=== PATIENT | male | born 1960 | race Caucasian/White ===

== ENCOUNTER → 2020-08-06 10:01 | Outpatient (BNVA) | payer OTHER, SELFPAY | PROVIDERS: PCP Internal Medicine; Visit Provider Orthopaedic Surgery ==

== ENCOUNTER 2024-04-11 11:27 | Day surgery (SDC) | payer OTHER, SELFPAY ==
[2024-04-11] VITALS (9 sets, daily range): BP systolic 124–159; BP diastolic 70–95; PULSE 70–79; RESP 16–18; TEMP 36.6–36.8; O2SAT 97–99; BMI 31.9
--- NOTE | ~2024-04-11 | CT_ITS ---
EXAMINATION: CT ABDOMEN AND PELVIS WITHOUT CONTRAST CLINICAL INFORMATION: COMPARISON: None available. TECHNIQUE: Multidetector volumetric imaging was performed from the superior aspect of the liver through the pubic symphysis. Sagittal and coronal reformatted images were obtained on the technologist's workstation. This CT examination was performed using dose optimization techniques as appropriate, variously including the following: *Automated exposure control *Adjustment of mA and/or kV according to patient size (this includes techniques or standardized protocols for targeted exams where dose is matched to indication/reason for exam; i.e. extremities or head) *Use of iterative reconstruction technique DLP: 636 mGy-cm FINDINGS: LUNG BASES: The visualized lung bases are unremarkable. LIVER, GALLBLADDER, AND BILIARY TREE: Liver is enlarged and demonstrates moderate hepatic steatosis. No focal hepatic mass. No intrahepatic biliary dilatation. The gallbladder is unremarkable with no evidence of radiopaque gallstones, gallbladder wall thickening, or obvious pericholecystic inflammatory changes. PANCREAS: Unremarkable. SPLEEN: No focal splenic mass. Some scarring versus dystrophic calcification seen along the left lateral splenic margin. ADRENAL GLANDS: Unremarkable. KIDNEYS AND URETERS: There is a 5 x 2 stone in the most distal left ureter approaching the left UVJ4 with resultant mild to moderate left hydronephrosis. There is a nonobstructive stone within the left renal pelvis at 5 mm. There is a second 2.5 mm stone in the lower left kidney. No suspicious mass. No perinephric collection. Right kidney unremarkable. BLADDER: Unremarkable. GASTROINTESTINAL TRACT: Small hiatal hernia. No bowel obstruction or right or left lower quadrant inflammatory change. A few scattered diverticula are seen throughout the colon without diverticulitis. Appendix normal. ABDOMINAL WALL: No significant hernia is appreciated. LYMPH NODES: Normal. VASCULAR: There is atherosclerotic but not aneurysmal. PELVIC VISCERA: Unremarkable. OSSEOUS STRUCTURES: Mild degenerative change particularly at L2-3. No fracture. CT/CT abdomen pelvis wo IV con IMPRESSION: Distal left ureteral stone with mild to moderate left hydronephrosis. Fleischner guidelines were followed. Electronically signed by: Sam Long MD 04/11/2024 01:59 PM EDT
--- NOTE | 2024-04-11 12:30 | ED_ITS ---
HPI - Abdominal Pain General Chief Complaint: General Medical Stated Complaint: PT C/O L FLANK PAIN,?'S KIDNEY STONE PER EMS Time Seen by Provider: 04/11/24 11:33 Source: patient and old records reviewed Mode of arrival: EMS Limitations: no limitations History of Present Illness ED Provider: BEVERLY HPI narrative: 64 yo male with PMH of DM and renal colic here with c/o L flank pain and nausea starting after coffee this AM around 9am - no fevers, able to urinate, he has had two prior kidney stone episodes in the past that he passed on his own. At this time still has pain. Has no urologist. MD elicited complaint: flank pain Pertinent past history: kidney stones Onset (ago): hour(s) (few) Pain Consistency: constant Location: L flank Severity: moderate Quality: stabbing Radiation: LLQ Migration to: no migration Exacerbating factors: nothing Relieving factors: nothing Context: history of similar episodes Associated symptoms: nausea Related Data Home Medications ?Medication ?Instructions ?Recorded ?Confirmed ezetimibe 10 mg tablet 10 mg PO DAILY 08/06/20 metformin 1,000 mg tablet 1,000 mg PO BID 08/06/20 Allergies Allergy/AdvReac Type Severity Reaction Status Date / Time Gaufgqn-XTX-ZtK Reductase Allergy Mild Unknown Verified 04/11/24 12:09 Inhibitor [Xyfwkyt-Pyw-Zfj Reductase Inhibitor] Review of Systems Review of Systems Constitutional : No Weight loss, No Fever, No Chills ENT/Mouth : No sore throat, No Rhinorrhea Eyes: No Swelling, No Redness Cardiovascular : No Chest Pain, No SOB, NoEdema Respiratory : No Cough, No Sputum, No Wheezing Gastrointestinal : Positive Nausea, no Vomiting, no Diarrhea, positive abdominal Pain, No Hematochezia, No Melena Genitourinary : No Dysuria, No Urinary Frequency, No Hematuria, No Urgency Musculoskeletal : No joint pain, No Myalgias, No Joint Swelling Skin : No Skin Lesions, No rash Neuro : No Weakness, No Numbness, No Dizziness, No Headache All other systems reviewed and are negative. [facility] Past Medical History Attestation statement: The following information was validated with the patient. Source: old records reviewed Medical History Type 2 diabetes mellitus Nephrolithiasis Hyperglycemia Hypercholesteremia Surgical History History of arthroscopy of knee Family History Family History (Updated 08/06/20 @ 10:11 by DERRELL Parsons) Father No problems noted. Mother No problems noted. Social History Social History Alcohol intake: current Alcohol intake frequency: holidays/special occasions only Alcohol type: beer Smoked in Last 30 Days: No Use of substances other than those prescribed or required for medical reasons: No Advance Directives: No Advance Directives Information Provided: No Do you have a plan to hurt others: No Plan Current occupational status: retired Current occupation: right handed Physical Exam ED Vital Signs: Vital Signs - 24 hr 04/11/24 11:54 04/11/24 11:58 04/11/24 14:17 Temperature 98.0 F 98.0 F Pulse Rate 70 70 Respiratory Rate 16 16 16 Blood Pressure 155/71 H 155/71 H Pulse Oximetry 98 98 Oxygen Delivery Method Room Air Room Air BMI result Body Mass Index 31.9 Appearance: Alert. Oriented X3. No acute distress. Eyes: Pupils equal, round and reactive to light. ENT: Pharynx normal. Neck: Normal inspection. Neck supple. CVS: Normal heart rate and rhythm. Pulses normal. Respiratory: No respiratory distress. Breath sounds normal. Abdomen: Soft and non-tender. Skin: Skin warm and dry. Normal skin color. Normal skin turgor. Extremities: No lower extremity edema. No calf ttp Neuro: Oriented X 3. No motor deficit. No sensory deficit. Medical Decision Making Medical Decision Making [facility] Narrative: 64 yo male with PMH of DM and renal colic here with c/o L flank pain and nausea at this time will need labs, UA, CT scan for renal colic and IV morphine for pain feels similar to prior renal colic Differential Diagnosis Differential Diagnoses: The differential diagnosis associated with the presentation includes renal colic, constipation Admission/Observation Consideration of admission/observation: Escalation of care including admission/observation considered to go to OR with Dr. Crespo for removal NPO since coffee this AM Consult Healthcare Provider Management of the patient was discussed with: [employer] Supervisor (Dr. Crespo to remove stone) Lab Data [facility] Lab Attestation statement: I reviewed the patient's lab results. 04/11/24 12:28 04/11/24 12:58 Labs: Lab Results 04/11/24 04/11/24 Range/Units 12:28 12:58 WBC 11.0 H (4.8-10.8) X10*3/uL RBC 4.65 (4.60-5.80) X10*6/uL Hgb 14.9 (14.0-18.0) g/dl Hct 42.9 (42.0-52.0) % MCV 92.3 (80.0-98.0) fL MCH 32.0 (27.0-33.0) pg MCHC 34.7 (31.0-36.0) g/dl RDW 12.8 (11.0-16.0) % Plt Count 285 (160-400) X10*3/uL MPV 10.5 (9.4-12.4) fL Immature Gran % (Auto) 0.4 (0.0-0.4) % Neut % (Auto) 78.1 H (45-73) % Lymph % (Auto) 14.6 L (20-40) % [place] % (Auto) 5.4 (2-11) % Eos % (Auto) 0.7 (0-4) % Baso % (Auto) 0.8 (0-2) % Lymph # (Auto) 1.6 (1.2-4.9) X10*3/uL [place] # (Auto) 0.6 (0.1-1.2) X10*3/uL Eos # (Auto) 0.1 (0.0-0.4) X10*3/uL Baso # (Auto) 0.1 (0.0-0.2) X10*3/uL Abs Immat Gran (auto) 0.04 H (0.00-0.03) X10*3/uL Absolute Neuts (auto) 8.6 H (2.0-8.3) x10*3/uL Absolute Nucleated RBC 0.000 (0.0-0.012) X10*3/uL Nucleated RBC % (auto) 0.0 (0.0-0.2) /100WBC Smear Tech's Comments VERIFIED Sodium 141 (135-145) mmol/L Potassium 4.0 (3.3-5.1) mmol/L Chloride 106 (96-108) mmol/L Carbon Dioxide 25 (22-29) mmol/L Anion Gap 14 (12-20) BUN 16 (9-16) mg/dL Creatinine 1.07 (0.5-1.4) mg/dL Estim Creat Clear Calc 83.0 Estimated GFR > 60 Random Glucose 177 H (60-115) mg/dL Calcium 9.2 (8.4-10.2) mg/dL Magnesium 1.8 (1.6-2.6) mg/dL Total Bilirubin 0.4 (0.0-1.0) mg/dL Direct Bilirubin 0.1 (0.0-0.5) mg/dL AST 18 (5-37) U/L ALT 21 (0-40) U/L Alkaline Phosphatase 62 (39-117) U/L Total Protein 7.1 (6.5-8.0) g/dL Albumin 4.2 (3.5-5.0) g/dL Lipase 19 (8-78) U/L Independent Interpretation I performed an independent interpretation of an: EKG and CT Scan (+ renal colic) Interpretation: Rate: 71 Rhythm: NSR [place]: left Normal P waves. Normal SHANICE. Normal QRS complex. ST T wave : inverted t waves III, no JOSE qTC: 412 prior studies: no acute ischemia The study has been interpreted contemporaneously by me. . Radiology Impression Discussion of test interpretation with radiology: I have reviewed the radiologist's reading. Independent Historian Clinical information obtained from an independent historian. History obtained from or confirmed by: Spouse External Record Review External record reviewed: Inpatient record Medications Administered Discontinued Medications Generic Name Dose Route Start Last Admin Trade Name Anna PRN Reason Stop Dose Admin Hydromorphone HCl 1 mg 04/11/24 14:13 04/11/24 14:17 Hydromorphone Hcl 1 Mg/Ml Syringe IVPUSH 04/11/24 14:14 1 mg ONCE ONE Administration Protocol Ketorolac Tromethamine 15 mg 04/11/24 12:39 04/11/24 12:45 Ketorolac Tromethamine 15 Mg/Ml Vial IVPUSH 04/11/24 12:40 15 mg ONCE ONE Administration Morphine Sulfate 4 mg 04/11/24 12:05 04/11/24 12:46 Morphine Sulfate 4 Mg/Ml Cartridge IVPUSH 04/11/24 12:06 4 mg ONCE ONE Administration Protocol Ondansetron HCl 4 mg 04/11/24 12:05 04/11/24 12:45 Ondansetron Hcl 4 Mg/2 Ml Vial IVPUSH 04/11/24 12:06 4 mg ONCE ONE Administration Tamsulosin HCl 0.4 mg 04/11/24 14:05 04/11/24 14:11 Tamsulosin Hcl 0.4 Mg Capsule PO 04/11/24 14:06 0.4 mg ONCE ONE Administration Critical Care Time Critical Care Time Critical Care Time: Yes Total Critical Care Time: 35 Attestation: repeat IV morphine/dilaudid with improvement in pain, consult I attest to this time spent taking care of the patient Discharge Plan Discharge Clinical Impression: Ureterolithiasis Patient Disposition: Admitted as Observation
--- NOTE | 2024-04-11 12:35 | PC.NURSE ---
Pt is a difficulty stick for IV access, 2 attempts made by this RN without success. Colleague solicited, awaiting IV placement then will medicate per MAR.
[2024-04-11 12:42] LABS: Basophils Absolute Auto 0.1 X10*3/uL (0.0-0.2); Basophils Percent Auto 0.8 % (0-2); Hemoglobin 14.9 g/dl (14.0-18.0); Imm Gran Abs Auto 0.04 X10*3/uL (0.00-0.03); Imm Gran Pct Auto 0.4 % (0.0-0.4); MANUAL DIFF FLAG SCAN; PLT CLUMP 1; SCAN SMEAR FLAG 1
[2024-04-11 12:44] LABS: Eosinophils Absolute Auto 0.1 X10*3/uL (0.0-0.4); Eosinophils Percent Auto 0.7 % (0-4); Hematocrit 42.9 % (42.0-52.0); Lymphocytes Absolute Auto 1.6 X10*3/uL (1.2-4.9); Lymphocytes Percent Auto 14.6 % (20-40); Mean Corpuscular HGB Conc 34.7 g/dl (31.0-36.0); Mean Corpuscular Volume 92.3 fL (80.0-98.0); Monocytes Absolute Auto 0.6 X10*3/uL (0.1-1.2); Monocytes Percent Auto 5.4 % (2-11); Neutrophils Absolute Auto 8.6 x10*3/uL (2.0-8.3); Neutrophils Percent Auto 78.1 % (45-73); Red Blood Count 4.65 X10*6/uL (4.60-5.80); Red Cell Distribution Width 12.8 % (11.0-16.0)
[2024-04-11] MEDS: ondansetron HCL 4 MG/2 ML VIAL IVPUSH ×2 (12:45→19:35)
[2024-04-11] MEDS: Ketorolac Tromethamine 15 MG/ML VIAL IVPUSH (12:45)
[2024-04-11] MEDS: Morphine Sulfate 4 MG/ML CARTRIDGE IVPUSH (12:46)
[2024-04-11 13:17] LABS: Mean Platelet Volume 10.5 fL (9.4-12.4); Platelet Count 285 X10*3/uL (160-400); SLIDE REVIEW VERIFIED
[2024-04-11 13:20] LABS: Alanine Aminotransferase 21 U/L (0-40); Albumin Level 4.2 g/dL (3.5-5.0); Alkaline Phosphatase 62 U/L (39-117); Anion Gap 14 (12-20); Aspartate Amino Transferase 18 U/L (5-37); Bilirubin Direct 0.1 mg/dL (0.0-0.5); Bilirubin Total 0.4 mg/dL (0.0-1.0); Blood Urea Nitrogen 16 mg/dL (9-16); Calcium 9.2 mg/dL (8.4-10.2); Carbon Dioxide 25 mmol/L (22-29); Chloride 106 mmol/L (96-108); Estimated Glomerular Filt Rate > 60; Glucose Random 177 mg/dL (60-115); Lipase 19 U/L (8-78); Magnesium 1.8 mg/dL (1.6-2.6); Sodium 141 mmol/L (135-145); Total Protein 7.1 g/dL (6.5-8.0)
[2024-04-11] MEDS: Tamsulosin HCL 0.4 MG CAPSULE PO (14:11)
[2024-04-11] MEDS: HYDROmorphone HCl 1 MG/ML SYRINGE IVPUSH (14:17)
--- NOTE | 2024-04-11 14:18 | P.CNUR_ITS ---
History of Present Illness Consult details Consult date: 04/11/24 Narrative: CC: Left lower quadrant pain 64-year-old male 24 hour history of distal left quadrant pain Pass background of diabetes Pain associated with nausea, no vomiting Denies fever, chills, hematuria Has had 2 prior kidney stone episodes that have passed spontaneously WBC 11.0, creatinine 1.1, calcium 9.2 Imaging - There is a 5 x 2 stone in the most distal left ureter approaching the left UVJ4 with resultant mild to moderate left ]hydronephrosis. Discussion regarding intervention. Require cystoscopy, left retrograde with ureteroscopy and laser lithotripsy Review of Systems 2 Constitutional: Constitutional: Reports as per HPI and Reports no additional constitutional complaints Cardiovascular: Cardiovascular: Reports as per HPI and Reports no additional cardiovascular complaints Respiratory: Respiratory: Reports as per HPI and Reports no additional respiratory complaints Gastrointestinal: Gastrointestinal: Reports as per HPI and Reports no additional gastrointestinal complaints Genitourinary: Genitourinary: Reports as per HPI Musculoskeletal: Musculoskeletal: Reports no additional musculoskeletal complaints and Reports as per HPI Neurologic: Reports system reviewed and no additional complaints, except as documented and Reports as per HPI [facility] Past Medical History Medical History Type 2 diabetes mellitus Nephrolithiasis Hyperglycemia Hypercholesteremia Family History Family History (Updated 08/06/20 @ 10:11 by DERRELL Parsons) Father No problems noted. Mother No problems noted. Surgical History Surgical History History of arthroscopy of knee Social History Social History Alcohol intake: current Alcohol intake frequency: holidays/special occasions only Alcohol type: beer Smoked in Last 30 Days: No Use of substances other than those prescribed or required for medical reasons: No Advance Directives: No Advance Directives Information Provided: No Do you have a plan to hurt others: No Plan Current occupational status: retired Current occupation: right handed Meds Allergies Allergy/AdvReac Type Severity Reaction Status Date / Time Wvfyyfb-MRE-PiN Reductase Allergy Mild Unknown Verified 04/11/24 12:09 Inhibitor [Fyklszy-Wjn-Buu Reductase Inhibitor] Home Medications ?Medication ?Instructions ?Recorded ?Confirmed ?Last Taken ?Type ezetimibe 10 mg tablet 10 mg PO DAILY 08/06/20 Unknown History metformin 1,000 mg tablet 1,000 mg PO BID 08/06/20 Unknown History Physical Exam 2 Vital Signs: Vital Signs: Last Vital Signs Temp 98.0 F 04/11/24 11:58 Pulse 70 04/11/24 11:58 Resp 16 04/11/24 11:58 BP 155/71 H 04/11/24 11:58 Pulse Ox 98 04/11/24 11:58 O2 Del Method Room Air 04/11/24 11:58 BMI result Body Mass Index 31.9 Const: General: cooperative, healthy appearing, comfortable and no acute distress Orientation/consciousness: patient oriented x3 HEENT: Face and sinus: Yes normal facial exam Mouth: moist mucous membranes Neck: Neck: Yes normal visual inspection, Yes full ROM and Yes trachea midline Chest: Chest palpation & inspection: normal inspection of the chest Resp: Effort & Inspection: normal respiratory effort, able to speak in complete sentences and no respiratory distress GI: Inspection: Yes normal to inspection Back/Spine/Pelvis: Cervical Spine: normal cervical lordosis Thoracic/Lumbar Spine: thoracic and lumbar spine normal to inspection Skin: General skin exam: no rashes or lesions noted Neuro: General: patient oriented x3, tone normal and moves all extremities Extrem: General: Yes normal to inspection and Yes capillary refill normal Results Labs 04/11/24 12:28 04/11/24 12:58 Labs: Abnormal lab results 04/11/24 04/11/24 Range/Units 12:28 12:58 WBC 11.0 H (4.8-10.8) X10*3/uL Neut % (Auto) 78.1 H (45-73) % Lymph % (Auto) 14.6 L (20-40) % Abs Immat Gran (auto) 0.04 H (0.00-0.03) X10*3/uL Absolute Neuts (auto) 8.6 H (2.0-8.3) x10*3/uL Random Glucose 177 H (60-115) mg/dL Short CBC 04/11/24 Range/Units 12:28 WBC 11.0 H (4.8-10.8) X10*3/uL Hgb 14.9 (14.0-18.0) g/dl Hct 42.9 (42.0-52.0) % Plt Count 285 (160-400) X10*3/uL BMP 04/11/24 12:58 Sodium 141 Potassium 4.0 Chloride 106 Carbon Dioxide 25 BUN 16 Creatinine 1.07 Calcium 9.2 Liver Function 04/11/24 Range/Units 12:58 Total Bilirubin 0.4 (0.0-1.0) mg/dL Direct Bilirubin 0.1 (0.0-0.5) mg/dL AST 18 (5-37) U/L ALT 21 (0-40) U/L Alkaline Phosphatase 62 (39-117) U/L Albumin 4.2 (3.5-5.0) g/dL All other labs normal. Assessment and Plan (1) Ureterolithiasis: Status: Acute Plan Ureteroscopy We discussed the nature of the decision and reasonable alternatives for performing ureteroscopy. Options such as medical therapy were discussed. Interventions include chemical dissolution, ESWL, ureteroscopy with laser lithotripsy and stent placement, PCNL. The relative uncertainties and benefits related to each alternate procedure were adequately discussed. General surgical risks including, but not limited to - pain, bleeding, infection, myocardial infarction, pulmonary embolus, deep vein thrombosis and cerebrovascular accident which may result in further hospitalization were discussed. Full disclosure of the procedure as well as all major risks, benefits and complications were discussed including but not limited to damage to the urethra, bladder and kidney infection, damage to the ureter, stent migration or malposition, scarring to the renal pelvis, remnant stone fragments, subsequent stone passage with need for secondary procedures. The overall secondary procedure rate is approximately 10-15%. The overall clearance rate is approximately 90-95%. Success of the procedure in the short-term does not necessarily guarantee that long-term success will be maintained. Suitable follow up will need to be maintained. The patient showed understanding of discussion and wishes to proceed with - cystoscopy, retrograde, ureteroscopy, possible lithotripsy/stone basketing and stent on the left side Procedures Date of Service Date of Service: 04/11/24
--- NOTE | 2024-04-11 15:07 | ECG_ITS ---
Test Reason : ABD PAIN Blood Pressure : / mmHG Vent. Rate : 071 BPM Atrial Rate : 071 BPM P-R Int : 150 ms QRS Dur : 084 ms QT Int : 380 ms P-R-T Axes : 030 -47 -08 degrees QTc Int : 412 ms Normal sinus rhythm with sinus arrhythmia Left axis deviation Cannot rule out Anterior infarct , age undetermined Abnormal ECG No previous ECGs available Referred By: Opal Loya Electronically Signed By:CARLITO UP MD
[2024-04-11 15:30] LABS: Appearance Urine Cloudy; Color Urine Dark Yellow; Glucose Urine UA >=1000 mg/dL (Negative); Leukocyte Esterase Urine Negative (Negative); Nitrite Urine Negative (Negative); Specific Gravity - Urine >= 1.030 (1.005-1.025); UMIC TRIGGER UACC YES; Urine Blood Negative (Negative); Urine Ketones 15 mg/dL (Negative); Urine Protein 30 (1+) mg/dL (Neg-Trace)
[2024-04-11 15:45] LABS: Bacteria Urine None Seen (None Seen); Calcium Oxalate Crystals Urine Present; Hyaline Casts Urine 0-2 /LPF (0-2); RBC Urine 0-2 /HPF (0-2); Squamous Epithelial Cell Urine 0-2 /HPF (0-2); WBC Urine 0-5 /HPF (0-5)
--- NOTE | 2024-04-11 16:35 | PC.NURSE ---
RN to RN report given to pre-op/OR.
--- NOTE | 2024-04-11 16:58 | HO.ANESPROP2 ---
HPI - Anesthesia Eval Consult details Narrative: Ureter stone obstruction PMFSH Active Problems Active Problems: All Active Problems Ureterolithiasis (Acute) Past Medical History Medical History Type 2 diabetes mellitus Nephrolithiasis Hyperglycemia Hypercholesteremia Family History Family History (Updated 08/06/20 @ 10:11 by Alexa Hannah Cynthia) Father No problems noted. Mother No problems noted. Family history of problems with anesthesia: No Surgical History Surgical History History of arthroscopy of knee History of Problems with Anesthesia: No Social History Social History Alcohol intake: current Alcohol intake frequency: holidays/special occasions only Alcohol type: beer Smoked in Last 30 Days: No Use of substances other than those prescribed or required for medical reasons: No Advance Directives: No Advance Directives Information Provided: No Do you have a plan to hurt others: No Plan Current occupational status: retired Current occupation: right handed Meds Allergies Allergy/AdvReac Type Severity Reaction Status Date / Time Grizmsy-ZNS-VeS Reductase Allergy Mild Unknown Verified 04/11/24 12:09 Inhibitor [Uafnejp-Mxp-Zno Reductase Inhibitor] Home Medications ?Medication ?Instructions ?Recorded ?Confirmed ?Last Taken ?Type ezetimibe 10 mg tablet 10 mg PO DAILY 08/06/20 Unknown History metformin 1,000 mg tablet 1,000 mg PO BID 08/06/20 Unknown History Exam Height,Weight and Vital Signs: Height 5 ft 10 in Weight 100.9 kg Last Vital Signs Temp 98.0 F 04/11/24 11:58 Pulse 70 04/11/24 11:58 Resp 16 04/11/24 14:17 BP 155/71 H 04/11/24 11:58 Pulse Ox 98 04/11/24 11:58 O2 Del Method Room Air 04/11/24 11:58 Pertinent Lab Results Pertinent Lab Results: Laboratory Tests 04/11/24 04/11/24 04/11/24 12:28 12:58 15:20 WBC 11.0 H RBC 4.65 Hgb 14.9 Hct 42.9 MCV 92.3 MCH 32.0 MCHC 34.7 RDW 12.8 Plt Count 285 MPV 10.5 Immature Gran % (Auto) 0.4 Neut % (Auto) 78.1 H Lymph % (Auto) 14.6 L [place] % (Auto) 5.4 Eos % (Auto) 0.7 Baso % (Auto) 0.8 Lymph # (Auto) 1.6 [place] # (Auto) 0.6 Eos # (Auto) 0.1 Baso # (Auto) 0.1 Abs Immat Gran (auto) 0.04 H Absolute Neuts (auto) 8.6 H Absolute Nucleated RBC 0.000 Nucleated RBC % (auto) 0.0 Smear Tech's Comments VERIFIED Sodium 141 Potassium 4.0 Chloride 106 Carbon Dioxide 25 Anion Gap 14 BUN 16 Creatinine 1.07 Estim Creat Clear Calc 83.0 Estimated GFR > 60 Random Glucose 177 H Calcium 9.2 Magnesium 1.8 Total Bilirubin 0.4 Direct Bilirubin 0.1 AST 18 ALT 21 Alkaline Phosphatase 62 Total Protein 7.1 Albumin 4.2 Lipase 19 Urine Color Dark Yellow Urine Appearance Cloudy Urine pH 5.0 Ur Specific [place] >= 1.030 H Urine Protein 30 (1+) H Urine Glucose (UA) >=1000 H Urine Ketones 15 Urine Blood Negative Urine Nitrite Negative Ur Leukocyte Esterase Negative Urine RBC 0-2 Urine WBC 0-5 Ur Squamous Epith Cells 0-2 Calcium Oxalate Crystal Present Urine Bacteria None Seen Hyaline Casts 0-2 Airway Mallampati Class: II TM Dist: >3cm Neck ROM: Full Loose/Missing/Broken Teeth: No Heart: RRR Lungs: CTA Assessment and Plan Assessment Anesthesia Assessment: Anesthesia Plan Discussed and Chart Reviewed Final Anesthetic Review Family History of Problems with Anesthesia: No History of Problems with Anesthesia: No NPO: Yes ASA Class: III and Emergency Final Preanesthetic Review: No Changes in Pt Med Stat, Meds/Allgs Chart Reviewed, Consent Obtained/Reviewed and Anes Risks/Benef Reviewed Patient Risk: Intermediate Procedure Risk: Low Anesthetic Plan Anesthetic Plan: GA Disposition: Standard PACU
[2024-04-11] MEDS: levoFLOXacin/D5W 500 MG/100 ML PIGGYBACK 100 MG IV (17:42)
--- NOTE | 2024-04-11 18:00 | MHC.SHP ---
Pre-Procedural Eval Section A - 24 Hr Update-Section A only Date of Service: 04/11/24 The patient is an INPATIENT: No Changes since office visit: No Cold of Flu in the past 2 weeks, No New Medical Problems, No Changes in Medication and No Patient answered all questions The patient has been examined within 24 hours of the surgical procedure. The History & Physical has been completed within 30 days and I have reviewed it.: Yes Section B - Complete if H&P > 30 days Chief Complaint: PT C/O L FLANK PAIN,?'S KIDNEY STONE PER EMS Details of Present Illness: Left distal ureteric stone Allergies: Allergies Allergy/AdvReac Type Severity Reaction Status Date / Time Jffzrbo-GJB-CeQ Reductase Allergy Mild Unknown Verified 04/11/24 12:09 Inhibitor [Ebgbdqu-Sac-Liw Reductase Inhibitor] Review of Systems Sugical H&P ROS: Negative: Constitution, Cardiovascular, Respiratory, Neurological, Psychiatric, Hem-Onc, Allergic/Immunologic, Gastrointestinal, Genitourinary, Musculoskeletal, Integumentary, Endocrine and Eyes/Ears/Nose/Throat Exam Surgical H&P Exam: Normal: HEENT, Normal: Heart, Normal: Lungs, Normal: Extremities, Normal: Abdomen, Normal: Skin and Normal: Neurological Plan Diagnosis/Plan: Unchanged (Cystoscopy, left retrograde, left ureteroscopy with laser lithotripsy and stent placement) I have reviewed the history and physical and performed a pertinent physical examination on my patient. No changes have occurred unless specified. Time Spent With Patient Time: Total time managing care of this patient today ____ minutes.
--- NOTE | 2024-04-11 18:50 | W.PM.OPN ---
Operative Note Operative Note Date of Service: 04/11/24 Narrative: PreOperative Diagnosis: Distal left ureteric stone Post Operative Diagnosis: Distal left ureteric stone Procedure: - cystoscopy, left retrograde - left dilatation of ureteric orifice under fluoroscopy - left ureteroscopy, laser lithotripsy, stone basketing - left stent placement Surgeon: Dr Nilo Crespo Anesthesia: General Indications for procedure: Distal left ureteric stone. Emergency room presentation for persistent pain. Elevated white count. Background diabetes. Procedure: After informed consent was verified the patient was brought to the operating room and placed in a supine position. Anesthesia was administered per protocol. The patient was placed in a modified dorsal lithotomy position and prepped and draped in a sterile fashion. Safety pause time-out and side of surgery were confirmed. Images were available for review. Antibiotic administration confirmed. A 22 [place] cystoscope was inserted per urethra. The urethra was without aabnormality. The bladder was normal in its entirety. Both ureteric orifices were seen in normal position. The left ureteric orifice was cannulated and a retrograde examination was performed. Filling defects seen in distal portion of ureter with proximal hydroureter . A Sensor guidewire was placed up to the level of the renal pelvis under fluoroscopy. The rigid cystoscope was removed. A Johny dilator was placed over the Sensor guidewire and used to dilate the ureteric orifice under fluoroscopy. The dilator was removed. The semi rigid ureteral scope was placed alongside the Sensor guidewire. Stone was encountered in distal portion of ureter.. Using a 365 micro holmium laser fiber the stone was broken into small pieces using a combination of hammer and dusting techiques. Stone fragments were removed from the ureter using a ZeroTip 2.4 [place] basket. Once the fragments were removed a decision was made to place a ureteric stent. Based on the height of the patient a 6 Fr x 26 stent was used. The string was removed from the stent prior to placement The rigid cystoscope was backloaded over the wire and advanced into the bladder. A 6 [place] by 26 cm double-J stent was placed into the renal pelvis and bladder under a combination of fluoroscopy and direct visualization. The bladder was emptied. The patient tolerated the procedure well and was extubated in the operating room. They were transferred in stable condition to the recovery area. Pathology: stones Drains: Double J stent as described above
[2024-04-11] MEDS: Phenazopyridine HCL 100 MG TABLET PO (19:20)
[2024-04-11] MEDS: Acetaminophen 1,000 MG/100 ML PIGGYBACK 400 MG IV (19:24)
[2024-04-11] MEDS: Ketorolac Tromethamine 30 MG/ML VIAL IVPUSH (19:28)
[2024-04-18 21:59] LABS: Stone Source LEFT URETERAL STONE
== END 2024-04-11 20:15 | disposition home or self-care (01) ==
LOC: HO.ED 14:50 → HO.SSS 14:57
PROVIDERS: Emergency Provider Emergency Medicine; PCP Internal Medicine; Visit Provider Urology
PROC: (CPT 52356; principal; 2024-04-11 18:00)
DX: N13.2 Hydronephrosis with renal and ureteral calculous obstruction (principal); E11.9 Type 2 diabetes mellitus without complications; E78.00 Pure hypercholesterolemia, unspecified; Z79.84 Long term (current) use of oral hypoglycemic drugs; Z79.899 Other long term (current) drug therapy
CPT/HCPCS: 52356; 36415; 74176; 80048; 80076; 81001; 82365; 83690; 83735; 85025; 88300; 93005; 96374; 96375; 99285; C1758; C1769; C2617; J0131; J1171; J1885; J1956; J2003; J2270; J2405; J2704; J3010; Q9967

== ENCOUNTER → 2024-04-11 12:16 | Outpatient (BNV) | payer OTHER, SELFPAY | PROVIDERS: Emergency Provider Emergency Medicine; PCP Internal Medicine; Visit Provider Urology | DX: N20.1 Calculus of ureter (principal) | CPT/HCPCS: 52356; 74420; 99284 ==

== ENCOUNTER → 2024-04-11 15:07 | Outpatient (BNV) | payer OTHER, SELFPAY | PROVIDERS: Emergency Provider Emergency Medicine; PCP Internal Medicine; Visit Provider Internal Medicine Cardiovascular Disease | DX: R94.31 Abnormal electrocardiogram [ECG] [EKG] (principal) | CPT/HCPCS: 93010 ==

== ENCOUNTER 2024-05-02 14:49 | Outpatient (AMB) | payer OTHER, SELFPAY ==
--- NOTE | 2024-05-02 14:56 | A.OFFVIS_ITS ---
Intake Visit Reasons: cysto stent removal Intake Note: Patient is present for Cystoscopy/Stent Removal Urology Med:None Antibiotic Allergy: None Blood Thinner: None Uro G HD Disposable Cystoscope LOT:[id number] EXP:08/04/2026 Allergies Kjmoljh-NPL-SuZ Reductase Inhibitor [Vuwjkup-Sfn-Oyv Reductase Inhibitor] Allergy (Mild, Verified 04/11/24 12:09) Unknown HPI Comments Details: Sebastián is a pleasant male. He is a patient of Dr. Tapia. He seen for the following urologic conditions - nephrolithiasis Here for cysto stent removal Discussed Stone composition Start potassium citrate low-dose Encourage lemon water Nephrolithiasis 24 hour history of distal left quadrant pain Background of diabetes Laboratories WBC 11.0, creatinine 1.1, calcium 9.2 Intervention - 04/26 left ureteroscopy with laser lithotripsy Imaging - There is a 5 x 2 stone in the most distal left ureter approaching the left UVJ with resultant mild to moderate left hydronephrosis. Constituents - Calcium Oxalate Monohydrate (Whewellite) 95%Carbonate Apatite (Dahllite) 5% PFSH Medical History Type 2 diabetes mellitus Nephrolithiasis Hyperglycemia Hypercholesteremia Surgical History History of arthroscopy of knee Family History (Updated 08/06/20 @ 10:11 by DERRELL Parsons) Father No problems noted. Mother No problems noted. Social History Alcohol intake: current Alcohol intake frequency: holidays/special occasions only Alcohol type: beer Comment: OR Current occupational status: retired Current occupation: right handed Review of Systems Const Denies chills and Denies fever(s) Card Reports no additional complaints and Denies syncope Resp Denies cough GI Denies abdominal pain and Denies heartburn Reports as per HPI and Denies change in libido Neuro Denies syncope Psych Denies change in libido Endo Denies change in libido Physical Exam Const General: cooperative, healthy appearing, comfortable and no acute distress Orientation/consciousness: patient oriented x3 HEENT Face and sinus: Yes normal facial exam Mouth: moist mucous membranes Neck Neck: Yes normal visual inspection, Yes full ROM and Yes trachea midline Chest Chest palpation & inspection: normal inspection of the chest Resp Effort & Inspection: normal respiratory effort, able to speak in complete sentences and no respiratory distress GI Inspection: Yes normal to inspection Back/Spine/Pelvis Cervical Spine: normal cervical lordosis Thoracic/Lumbar Spine: thoracic and lumbar spine normal to inspection Skin General skin exam: no rashes or lesions noted Neuro General: patient oriented x3, gait normal, tone normal and moves all extremities Extrem General: Yes normal to inspection and Yes capillary refill normal Office Procedures Cystoscopy Consent Discussed risk and benefit or proposed procedure with the patient. Information consent for procedure given to the patient. Discussed technical aspects, risks, benefits and alternatives in full. Addressed all of the patient's questions and concerns regarding the procedure. The patient demonstrated knowledge and understanding. They wish to proceed with this procedure. Preparation The patient was prepped in the usual manner. A etcher apprentice photoengraving was present and in the room. Genitalia was prepped with betadine solution in a sterile manner. Lidocaine Jelly 2% was placed into the urethra and 16Fr flexible Olympus cystoscope was inserted into the meatus after adequate lubrication. Procedure A well lubricated 16 Mexican cystoscope was placed No abnormality noted of urethra during placement Indwelling stent seen within bladder emerging from left ureteric orifices The stent was grasped with a 3 prong grasper and removed without difficulty The patient tolerated the procedure well [id number] with stent removal DISPOSABLE SCOPE URO-G FLEXIBLE SCOPE Procedure code (CPT) selection complete Office Meds lidocaine HCl 2 % mucosal jelly in applicator Performing Provider: Nilo Crespo MD Performing Location: [facility] Administered by: Jose Arita LPN on 05/02/24 15:17 Dose Route Admin Location Dispensed Lot Number Expiration Date [facility] Placement Specialist 10 mL intra-urethral 10 mL nitrofurantoin monohydrate/macrocrystals 100 mg capsule Performing Provider: Nilo Crespo MD Performing Location: [facility] Administered by: Jose Arita LPN on 05/02/24 15:17 Dose Route Admin Location Dispensed Lot Number Expiration Date [facility] Placement Specialist 100 mg PO 1 cap naproxen 500 mg tablet Performing Provider: Nilo Crespo MD Performing Location: [facility] Administered by: Jose Arita LPN on 05/02/24 15:17 Dose Route Admin Location Dispensed Lot Number Expiration Date [facility] Placement Specialist 500 mg PO 1 tab Results AMB Urinalysis, Automated UA Leukoctes 0 Rashawn/uL Last Edit by Estela Medina [facility] on 05/02/24 15:11 UA Nitrite Negative Last Edit by Estela Medina, A on 05/02/24 15:11 UA Urobilinogen 0.2 mg/dL Last Edit by Estela Medina A on 05/02/24 15:1 1 UA Protein 100 mg/dL Last Edit by Estela Medina A on 05/02/24 15:11 UA pH 5.5 Last Edit by Estela Medina, A on 05/02/24 15:11 UA Blood 200 [place]/uL Last Edit by Estela Medina [facility] on 05/02/24 15:11 UA Specific [place] 1.020 Last Edit by Estela Medina A on 05/02/24 15: 11 UA Ketone Negative Last Edit by Estela Medina [facility] on 05/02/24 15:11 UA Bilirubin 0 mg/dL Last Edit by Estela Medina [facility] on 05/02/24 15:11 UA Glucose 1000 mg/dL Last Edit by Estela Medina [facility] on 05/02/24 15:11 Results Reviewed Results Reviewed: Laboratory Last Values Urine pH (Auto) 5.5 05/02/24 15:01 Specific [place] (Auto) 1.020 05/02/24 15:01 Urine Protein (Auto) 100 mg/dL 05/02/24 15:01 Glucose (UA)(Auto) 1000 mg/dL 05/02/24 15:01 Urine Ketones (Auto) Negative 05/02/24 15:01 Urine Blood (Auto) 200 [place]/uL 05/02/24 15:01 Urine Nitrite (Auto) Negative 05/02/24 15:01 Urine Bilirubin (Auto) 0 mg/dL 05/02/24 15:01 Urine Urobilinogen (Auto) 0.2 mg/dL 05/02/24 15:01 Leukocyte Esterase (Auto) 0 Rashawn/uL 05/02/24 15:01 Assessment & Plan Assessment & Plan (1) Ureterolithiasis: Code(s): N20.1 - Calculus of ureter Category: Medical Plan Six-month follow-up renal ultrasound Orders: Orders AMB Cystoscopy Today N20.1 - Calculus of ureter AMB Urinalysis Automated Today Z13.9 - Encounter for screening, unspecified US renal BI 6 Months N20.1 - Calculus of ureter Medications: New potassium citrate ER 10 mEq PO BID 90 days 180 tabs 1RF N20.0 - Calculus of ki dney, N20.1 - Calculus of ureter Patient Instructions: Imaging studies, laboratory and physical exam results were discussed and reviewed in detail. No major barriers to patient understanding were identified. An opportunity to ask questions regarding the treatment plan was provided. All questions were answered. The patient expressed understanding and agreement with the above treatment plan. The patient is aware they should contact our office by phone for worsening of their current condition or the appearance of new urologic symptoms. Compliance is encouraged with any medications and followup testing that is ordered. It is a privilege to participate in the urologic care of your patient. If you have any questions or concerns regarding treatment for the above conditions, or other urologic issues, please do not hesitate to contact me. The office telephone contact is [phone]. This note is constructed using voice recognition software. While every effort has been made to ensure accuracy animal keeper head errors may have been included. Yours sincerely, Dr Nilo Crespo MD, [facility] - Urology Providers of Expert, Compassionate Care for the Genitourinary System Coding Level of Care Code Est Pt Level 4 (62666) Diagnoses Ureterolithiasis N20.1 CPT Codes Cystoscopy - CPT: 70414-[id number] with stent removal ([id number])
== END 2024-05-02 15:37 | disposition home or self-care (01) ==
LOC: HO.HUSH 14:50
PROVIDERS: PCP Internal Medicine; Visit Provider Urology
DX: N20.1 Calculus of ureter (principal); Z13.9 Encounter for screening, unspecified
CPT/HCPCS: 52310; 99214

== ENCOUNTER → 2024-05-02 14:49 | Outpatient (BNVA) | payer OTHER, SELFPAY | PROVIDERS: PCP Internal Medicine; Visit Provider Urology | DX: Z48.816 Encounter for surgical aftercare following surgery on the genitourinary system (principal) | CPT/HCPCS: 52310; 81003 ==

== ENCOUNTER 2024-10-26 09:41 | Outpatient (REF) | payer OTHER, SELFPAY ==
--- NOTE | ~2024-10-26 | US_ITS ---
CLINICAL HISTORY: N20.1 - Calculus of ureter US Renal Comparison: CT/SR - CT ABDOMEN PELVIS WO IV CON - 04/11/24 12:41 EDT Findings: Right kidney normal size and echotexture, 11.5 cm length. Left kidney normal size and echotexture, 11.2 cm length. No hydronephrosis of the right kidney. Possible gghk-se-kyqcqbdz hydronephrosis of the left kidney. Multiple peripelvic cysts are present within the left kidney, limiting evaluation for hydronephrosis. There is a 4 mm calculus within the midportion of the left kidney. Normal color Doppler IMPRESSION: 1. There may be a uymq-bv-spzdzonu degree of hydronephrosis of the left kidney. 2. 4 mm calculus within the left kidney. This document has been electronically signed by: Janine Collado MD on 10/30/2024 14:02:22
== END 2024-10-26 09:42 | disposition home or self-care (01) ==
LOC: HO.US 09:41
PROVIDERS: PCP Internal Medicine; Visit Provider Urology
DX: N20.1 Calculus of ureter (principal)
CPT/HCPCS: 76775

== ENCOUNTER → 2024-10-26 09:42 | Outpatient (BNV) | payer OTHER, SELFPAY | PROVIDERS: PCP Internal Medicine; Visit Provider Radiology Diagnostic Radiology | DX: N13.2 Hydronephrosis with renal and ureteral calculous obstruction (principal) | CPT/HCPCS: 76775 ==

== ENCOUNTER 2024-10-31 11:17 | Outpatient (AMB) | payer OTHER, SELFPAY ==
--- NOTE | 2024-10-31 11:44 | A.OFFVIS_ITS ---
Intake Visit Reasons: 6m/US Intake Note: Patient is present for 6M/US Urology Medication:POTASSIUM CIRTRATE Antibiotic Allergy:NONE Blood Thinner:NONE Security And Compliance Project Manager Required: No Allergies Zhtnnwx-BMO-UbC Reductase Inhibitor [Switlhn-Lrd-Htl Reductase Inhibitor] Allergy (Mild, Verified 10/31/24 11:45) Unknown HPI Comments Details: Sebastián is a pleasant male. He is a patient of Dr. Tapia. He seen for the following urologic conditions - nephrolithiasis Stone follow-up Ultrasound with small left stone Continue potassium citrate since background diabetes One year follow-up imaging Nephrolithiasis 24 hour history of distal left quadrant pain Background of diabetes Laboratories WBC 11.0, creatinine 1.1, calcium 9.2 Intervention - 04/26 left ureteroscopy with laser lithotripsy Imaging - There is a 5 x 2 stone in the most distal left ureter approaching the left UVJ with resultant mild to moderate left hydronephrosis. Constituents - Calcium Oxalate Monohydrate (Whewellite) 95%Carbonate Apatite (Dahllite) 5% PFSH Medical History Type 2 diabetes mellitus Nephrolithiasis Hyperglycemia Hypercholesteremia Surgical History History of arthroscopy of knee Family History (Updated 08/06/20 @ 10:11 by DERRELL Parsons) Father No problems noted. Mother No problems noted. Social History Alcohol intake: current Alcohol intake frequency: holidays/special occasions only Alcohol type: beer Comment: OR Current occupational status: retired Current occupation: right handed Review of Systems Const Denies chills and Denies fever(s) Card Reports no additional complaints and Denies syncope Resp Denies cough GI Denies abdominal pain and Denies heartburn Reports as per HPI and Denies change in libido Neuro Denies syncope Psych Denies change in libido Endo Denies change in libido Physical Exam Const General: cooperative, healthy appearing, comfortable and no acute distress Orientation/consciousness: patient oriented x3 HEENT Face and sinus: Yes normal facial exam Mouth: moist mucous membranes Neck Neck: Yes normal visual inspection, Yes full ROM and Yes trachea midline Chest Chest palpation & inspection: normal inspection of the chest Resp Effort & Inspection: normal respiratory effort, able to speak in complete sentences and no respiratory distress GI Inspection: Yes normal to inspection Back/Spine/Pelvis Cervical Spine: normal cervical lordosis Thoracic/Lumbar Spine: thoracic and lumbar spine normal to inspection Skin General skin exam: no rashes or lesions noted Neuro General: patient oriented x3, gait normal, tone normal and moves all extremities Extrem General: Yes normal to inspection and Yes capillary refill normal Assessment & Plan Assessment & Plan (1) Ureterolithiasis: Code(s): N20.1 - Calculus of ureter Category: Medical Plan Twelve month follow-up imaging Patient Instructions: This note is constructed using voice recognition software. While every effort has been made to ensure accuracy cylinder inspector and tester errors may have been included. Imaging studies, laboratory and physical exam results were discussed and reviewed in detail. No major barriers to patient understanding were identified. An opportunity to ask questions regarding the treatment plan was provided. All questions were answered. The patient expressed understanding and agreement with the above treatment plan. The patient is aware they should contact our office by phone for worsening of their current condition or the appearance of new urologic symptoms. Compliance is encouraged with any medications and followup testing that is ordered. It is a privilege to participate in the urologic care of your patient. If you have any questions or concerns regarding treatment for the above conditions, or other urologic issues, please do not hesitate to contact me. The office telephone contact is [phone]. Sincerely, Dr Nilo Crespo MD, [facility] - Urology Compassionate Specialist Care for the Genitourinary System Coding Level of Care Code Est Pt Level 3 (24306) Diagnoses Ureterolithiasis N20.1
== END 2024-10-31 12:29 | disposition home or self-care (01) ==
LOC: HO.HUSH 11:18
PROVIDERS: PCP Internal Medicine; Visit Provider Urology
DX: N20.1 Calculus of ureter (principal)
CPT/HCPCS: 99213